=== PATIENT | female | born 1940 | race Hispanic/Latino ===

== ENCOUNTER 2017-11-07 17:58 | Emergency (ER) | payer MEDICARE, OTHER ==
[~2017-11-07] VITALS: Ht 149.9 cm; Wt 57.6 kg
[2017-11-07] MEDS ORDERED: TRAMADOL HCL 50 MG TAB PO ONE (19:00)
--- NOTE | 2017-11-07 19:37 | Diagnostic Imaging Report ---
Radiographs of the left shoulder - HISTORY: Pain COMPARISON: None available. FINDINGS: Bones: No acute displaced fracture. Osseous alignment is within normal limits. Joints: Scattered degenerative change. Soft tissues: The soft tissues appear unremarkable. IMPRESSION: Scattered degenerative change. Signed by: Dr. Yanick Jacob M.D. on 11/07/2017 7:33 PM
== END 2017-11-07 20:44 | disposition home or self-care (01) ==
LOC: ER 17:58
DX: M25.512 Pain in left shoulder (principal)
CPT/HCPCS: 93005; 99283

== ENCOUNTER 2017-11-09 08:16 | Emergency (ER) | payer OTHER ==
[~2017-11-09] VITALS: Ht 149.9 cm; Wt 57.7 kg
[2017-11-09] MEDS ORDERED: KETOROLAC TROMETHAMINE 30 MG/ML VIAL IM STA (08:49)
[2017-11-09] MEDS ORDERED: CYCLOBENZAPRINE10 MG PO (09:26)
== END 2017-11-09 09:18 | disposition home or self-care (01) ==
LOC: FSED 08:16
DX: M25.512 Pain in left shoulder (principal); M75.52 Bursitis of left shoulder
CPT/HCPCS: 96372; 99283; J1885

== ENCOUNTER 2019-10-19 09:08 | Emergency (ER) | payer OTHER ==
[~2019-10-19] VITALS: Ht 149.9 cm; Wt 57.6 kg
[~2019-10-19 09:08] MED LIST: CYCLOBENZAPRINE10 MG PO
[2019-10-19] MEDS ORDERED: CYCLOBENZAPRINE HCL 10 MG TAB PO ONE (09:15)
[2019-10-19] MEDS ORDERED: IBUPROFEN 600 MG TAB PO STA (09:15)
[2019-10-19] MEDS ORDERED: IBUPROFEN 600 MG TAB ONE (09:23)
[2019-10-19] MEDS ORDERED: CYCLOBENZAPRINE HCL 10 MG TAB ONE (09:24)
--- NOTE | 2019-10-19 09:35 | Emergency Department Note ---
History of Present Illnes History of Present Illness Chief Complaint: General Medicine Complaints History of Present Illness This is a 79 year old female . Historian: Patient Arrival Mode: [employer] Manager Required: No Onset (how long ago): day(s) (2) Location: right lateral neck spasms Quality: ache Radiation: Reports non-radiation Severity: moderate Onset quality: sudden Duration (how long): day(s) (2) Timing of current episode: constant Progression: unchanged Chronicity: new Context: Reports other (woke up 2 days ago ); Denies recent illness, Denies recent surgery, Denies recent immobilization, Denies trauma/injury, Denies non-compliance w/ medications Relieving factors: none Exacerbating factors: movement Associated symptoms: Denies denies other symptoms, Denies confusion, Denies chest pain, Denies cough, Denies diaphoresis, Denies fever/chills, Denies headaches, Denies loss of appetite, Denies malaise, Denies nausea/vomiting Treatments prior to arrival: none Past Medical/Family History Physician Review I have reviewed the patient's past medical and family history. Any updates have been documented here. Past Medical History Recent Fever: No Clinical Suspicion of Infectio: No New/Unexplained Change in Ment: No Past Medical History: None Past Surgical History: None Social History Smoking Cessation: Never Smoker Counseling Performed: No Any Illegal Drug Use: No TB Exposure/Symptoms: No Physically hurt or threatened: No Family History Family history of heart diseas: No Other Last Tetanus: unk Any Pre-Existing Lines (PICC,: No Is patient up to date on immun: No Review of Systems ROS Narrative Patient is a 79 year old female that presents with left sided neck muscle spasms x 2 days. Patinet states she woke up with "a crick in her neck" that has not resolved. Patient states pain has not resolved. Denies any trauma Review of Systems Constitutional: Reports no symptoms EENTM: Reports no symptoms Cardiovascular: Reports no symptoms Respiratory: Reports no symptoms Gastrointestinal: Reports no symptoms Genitourinary: Reports no symptoms Musculoskeletal: Reports muscle pain, Reports muscle stiffness Integumentary: Reports no symptoms Neurological: Reports no symptoms Psychological: Reports no symptoms Endocrine: Reports no symptoms Hematological/Lymphatic: Reports no symptoms Physical Exam Related Data Allergies: Coded Allergies: No Known Allergies (Unverified , 11/07/17) Triage Vital Signs Vital Signs Date Time Temp Pulse Resp B/P (MAP) Pulse Ox O2 Delivery O2 Flow Rate FiO2 10/19/19 09:12 98.4 79 18 151/63 96 Room Air Vital signs reviewed: Yes Physical Exam CONSTITUTIONAL Constitutional: Present well-developed HENT HENT: Present normocephalic, Present atraumatic, Present oropharynx normal HENT L/R: Present left TM normal, Present right TM normal EYES Eyes: Reports PERRL, Reports conjunctivae normal NECK Neck: Present other (pain with palpation over right lateral neck muscles ) PULMONARY Pulmonary: Present effort normal CARDIOVASCULAR Cardiovascular: Present regular rhythm GASTROINTESTINAL Abdominal: Present soft, Present nontender GENITOURINARY Genitourinary: Present exam deferred SKIN Skin: Present warm MUSCULOSKELETAL Musculoskeletal: Present ROM normal, Present tenderness NEUROLOGICAL Neurological: Present alert, Present oriented x 3 PSYCHOLOGICAL Psychological: Present mood/affect normal Assessment & Plan Medical Decision Making MDM Anti-inflamatory and muscle relaxer given DC home with same Reassessment Reassessment time: 09:34 Reassessment Patient feeling better Assessment & Plan Final Impression: (1) Muscle spasms of neck Depart Disposition: HOME, SELF-CARE Last Vital Signs Date Time Temp Pulse Resp B/P (MAP) Pulse Ox O2 Delivery O2 Flow Rate FiO2 10/19/19 09:12 98.4 79 18 151/63 96 Room Air Home Meds Active Scripts Cyclobenzaprine Hcl (CYCLOBENZAPRINE HCL) 10 Mg Tablet, 5 MG PO TID for MUSCLE SPASMS, #12 TAB 0 Refills Prov:DILIP BISHOP MD 11/09/17 Medications in the ED Ibuprofen 600 mg ONCE STAT PO Last administered on 10/19/19at 09:19; Admin Dose 600 MG; Start 10/19/19 at 09:15; Stop 10/19/19 at 09:16; Status UNV Cyclobenzaprine HCl 10 mg ONCE ONCE PO Last administered on 10/19/19at 09:19; Admin Dose 10 MG; Start 10/19/19 at 09:15; Stop 10/19/19 at 09:16; Status UNV SAKSHI MARTELL Oct 19, 2019 09:35
== END 2019-10-19 09:41 | disposition home or self-care (01) ==
LOC: ER 09:23
DX: M62.838 Other muscle spasm (principal); M54.2 Cervicalgia
CPT/HCPCS: 99284